=== PATIENT | female | born 1990 | race Caucasian/White ===

== ENCOUNTER 2024-07-15 02:24 | Outpatient (CLI) | payer BC, SELFPAY ==
[2024-07-15 16:36] LABS: Panorama Kit Sent via Fed Ex
[2024-07-15 16:54] LABS: Abs Immature Grans 0.02 10^3/uL (0.0-0.06); Absolute Basophil Count 0.04 10^3/uL (0.0-0.2); Absolute Eosinophil Count 0.07 10^3/uL (0.0-0.7); Absolute Monocyte Count 0.53 10^3/uL (0.1-0.8); Absolute Neutrophil Count 4.88 10^3/uL (1.2-6.7); Basophils % 0.6 %; HCT 36.9 % (36.0-46.0); HGB 12.7 g/dL (11.2-15.7); Immature Grans % 0.3 %; Lymphocytes % 23.5 %; MCH 32.7 pg (27.0-33.0); MCHC 34.4 % (32.0-36.0); MCV 95 fL (80-95); MPV 10.7 fL (8.0-11.0); Monocytes % 7.3 %; Neutrophils % 67.3 %; Platelet Count 221 10^3/uL (130-400); RBC 3.88 10^6/uL (3.93-5.22); RDW 11.3 % (11.7-14.6); RDW-SD 39.6 fL; WBC 7.24 10^3/uL (4.4-10.8)
[2024-07-17 09:21] LABS: Hepatitis B Surface Ag Negative (Negative)
[2024-07-17 09:59] LABS: Hepatitis C Ab w Rflx HCV PCR Negative (Negative)
[2024-07-17 10:21] LABS: HIV-1/2 Ag & Ab Screen Negative (Negative)
[2024-07-17 10:56] LABS: Varicella IgG Antibody Positive (See Note)
[2024-07-17 11:03] LABS: Rubella IgG Ab (UVM) Negative (See Note)
[2024-07-19 00:09] LABS: Syphilis IgG w/Reflex Nonreactive (Nonreactive)
[2024-07-20 03:57] LABS: Specimen WB Whole Blood
[2024-07-25 16:50] LABS: Result Summary NEGATIVE; Specimen WB Whole Blood
== END 2024-07-15 02:25 | disposition home or self-care (01) ==
LOC: LBO 02:25
PROVIDERS: Visit Provider Advanced Practice Midwife
DX: Z34.91 Encounter for supervision of normal pregnancy, unspecified, first trimester (principal); E84.9 Cystic fibrosis, unspecified
CPT/HCPCS: 36415; 81220; 81222; 81329; 86787; 86803; 86850; 86900; 86901; 87340; 87389; 82105; 85025; 86762; 86780

== ENCOUNTER 2024-07-15 16:01 | Outpatient (REF) | payer BC, SELFPAY ==
[2024-07-17 13:11] LABS: Chlamydia Result Negative (Negative); GC Result Negative (Negative)
== END 2024-07-15 16:02 | disposition home or self-care (01) ==
LOC: LBN 16:01
PROVIDERS: Visit Provider Advanced Practice Midwife
DX: Z34.91 Encounter for supervision of normal pregnancy, unspecified, first trimester (principal); Z3A.12 12 weeks gestation of pregnancy
CPT/HCPCS: 87491; 87591; 87086

== ENCOUNTER 2024-08-13 02:27 | Outpatient (CLI) | payer BC, SELFPAY ==
[2024-08-16 12:53] LABS: AFP 44.2 ng/mL; Calculated age at EDD 32 years; Cigarette smoking status non-Smoker; GA used in risk estimate Dates estimate; IVF Pregnancy No; Initial or repeat testing Initial testing; Insulin dependent diabetes No; Maternal Weight 115 lbs; Number of Fetuses 1; Physician Phone Number 802-748-7300; Prev Pregnancy w/NTD No; RECOMMENDED FOLLOW UP None.; Results Summary Normal risk
== END 2024-08-13 02:28 | disposition home or self-care (01) ==
LOC: LBO 02:27
PROVIDERS: Visit Provider Advanced Practice Midwife
DX: Z34.91 Encounter for supervision of normal pregnancy, unspecified, first trimester (principal)
CPT/HCPCS: 36415; 82105

== ENCOUNTER 2024-10-28 11:22 | Outpatient (CLI) | payer OTHER, SELFPAY ==
[2024-10-28 11:42] LABS: HCT 36.3 % (36.0-46.0); MCH 31.7 pg (27.0-33.0); MCHC 33.1 % (32.0-36.0); MCV 96 fL (80-95); MPV 10.9 fL (8.0-11.0); Platelet Count 166 10^3/uL (130-400); RBC 3.79 10^6/uL (3.93-5.22); RDW 12.1 % (11.7-14.6); RDW-SD 42.7 fL; WBC 6.83 10^3/uL (4.4-10.8)
[2024-10-28 11:50] LABS: Glucose,1 Hr (Glucola) 105 mg/dL (80-140)
== END 2024-10-28 11:23 | disposition home or self-care (01) ==
LOC: LBO 11:27
PROVIDERS: Advanced Practice Midwife; Visit Provider Advanced Practice Midwife
DX: O26.892 Other specified pregnancy related conditions, second trimester (principal); Z67.91 Unspecified blood type, Rh negative; Z34.92 Encounter for supervision of normal pregnancy, unspecified, second trimester
CPT/HCPCS: 36415; 82950; 85027; 86850; 86900; 86901; 90384

== ENCOUNTER 2024-11-19 10:26 | Outpatient (CLI) | payer OTHER, SELFPAY ==
[2024-11-19 10:51] VITALS: BP 94/56; PULSE 71; TEMP 36.8
--- NOTE | 2024-11-19 11:10 | W.OBNST ---
Date of service: 11/19/24 Time of Service: 11:10 NST Evaluation Reason for NST Reasons for Nonstress Test: OTHER, SEE COMMENT Reason for NST Other: Low HR on doppler in office Gestational Age Gestational Age in Weeks and Days: 30 Weeks and 6Days Test and Monitor Explained Test/Monitor Explained: Test Explained, Monitor Explained and Patient Verbalized Understanding Vital Signs Blood Pressure: 94/56 Pulse: 71 Temperature: 98.2 F Urine Results Urine Protein: Negative Urine Ketones: Negative Urine Glucose: Negative Urine Blood: Negative NST Information Date on Monitor: 11/19/24 Time on Monitor: 10:28 Date off Monitor: 11/19/24 Time off Monitor: 10:49 Total Time on Monitor: 21 NST Interventions: Notify Provider Contraction Frequency: Occasional NST Evaluation Patient States Movement: Present FHR Baseline: 130 Variability: Moderate 6-25 bpm Accelerations: 15x15 Decelerations: None NST Results: Reactive Note Ultrasound Done: N/A. NST Note Note: Brief episodes of FHR 90-110 heard with doppler. Fetus is active with Reactive NST with brief occasional FHR of 95-115 NST Reviewed and Verified by: Lisa Lewis
[2024-11-19 11:11] VITALS: BP 94/56; PULSE 71; TEMP 36.8
== END 2024-11-19 10:54 ==
LOC: BCD 10:27 → OBS 10:34
PROVIDERS: Visit Provider Advanced Practice Midwife
DX: O36.8330 Maternal care for abnormalities of the fetal heart rate or rhythm, third trimester, not applicable or unspecified (principal); Z3A.30 30 weeks gestation of pregnancy
CPT/HCPCS: 59025

== ENCOUNTER 2024-12-31 11:31 | Outpatient (REF) | payer OTHER, SELFPAY | END 2024-12-31 11:32 | disposition home or self-care (01) | LOC: LBN 11:31 | PROVIDERS: Visit Provider Advanced Practice Midwife | DX: Z34.93 Encounter for supervision of normal pregnancy, unspecified, third trimester (principal) | CPT/HCPCS: 87081 ==

== ENCOUNTER 2025-01-13 02:49 | Inpatient (IN) | payer OTHER, SELFPAY ==
[2025-01-13] VITALS (20 sets, daily range): BP systolic 92–129; BP diastolic 50–72; PULSE 72–120; RESP 16–18; TEMP 36.3–37.3; O2SAT 96–98
--- NOTE | 2025-01-13 03:42 | W.PM.OBHPL1 ---
Date of service: 01/13/25 Time of Service: 03:42 Assessment and Plan Assessment and plan (1) PROM with onset of labor within 24 hours of rupture: Status: Acute Assessment and plan: A: 34 yo @ 38+5 wks, SROM confirmed, clear fluid Early labor spontaneous onset, GBS negative Afebrile, normotensive, benign AP course Low risk for SD and PPH, category 1 tracing P: At 1 cm dilation pt offered discharge to home vs inpt admission, pt prefers to be admitted CBC, T&S, expectant management at this time with intermittent auscultation Pt planning low intervention labor and , FOB present for support OB-HPI Labor/Delivery History of Present Illness Reason for Visit: PRE TIMI Chief Complaint: Uterine Contractions; Suspected Rupture of Membranes , Associated Signs and Symptoms of Suspected ROM: gush of fluids at 2245, contractions beginning shortly thereafter. MADHURI Calculator Estimated Delivery Date Method Current WG Current Estimate 01/22/25 LMP (Certain) 38w 5d Other Estimates 01/25/25 Ultrasound #1 38w 2d History of Present Expected Delivery Route/Plan - CNM FOB - Johnny Diehl (his first child) BB yes to rosa m- [place] Rubella non-immune, offer MMR GBS negative Specific Issues/Plan 1. cfDNA low risk male, SMA negative, CF-neg, AFP- neg 2. 5-P's negative 3. RH neg, discussed with Sole Amador 10/28/24 4. Restless legs- magnesium supplements recommended and is helpful Assessment: History Reviewed & Current Review of Systems Narrative: ROS competed and noncontributory other than HPI PFSH All Active Problems (Updated 01/13/25 @ 03:47 by Talita Jarvis) PROM with onset of labor within 24 hours of rupture (Acute) Rh negative state in antepartum period (Acute) Rubella non-immune status, antepartum (Acute) [place] teeth extracted (Acute) (Acute) Positive urine test (Acute) Medical History (Updated 01/13/25 @ 03:47 by Talita Jarvis) Amenorrhea Fibrocystic breast changes of both breasts IUD mechanical complication [facility]ard [facility], 1 arm retained and fell out shortly thereafter. No sequelae. Family History (Updated 07/15/24 @ 21:37 by Lisa Lewis CNM) Mother Fibrocystic breast changes of both breasts Social History Smoking/Tobacco Use Status: Never Smoking risk assessment performed?: Yes History History 2 Para 0 Hx # Term Pregnancies 0 Multiple births 0 Hx # Pregnancies 0 Ectopic pregnancies 0 AB induced 1 Hx Number of Living Children 0 AB spontaneous 0 Meds Allergies and Home Medications Allergies Allergy/AdvReac Type Severity Reaction Status Date / Time No Known Allergies Allergy Verified 01/08/25 09:31 Home Medications ?Medication ?Instructions ?Recorded ?Confirmed ?Type [id number] 180 mcg-om3 32.5 tab PO 05/23/24 01/08/25 History [id number]-[id number]-[id number] chew tablet ( Gummies (DHA-EPA)) magnesium 200 mg tablet 200 mg PO DAILY 12/16/24 01/08/25 History Nature Made Iron gummies 2 tab PO DAILY 01/08/25 01/08/25 History Exam Physical Exam Vital Signs Reviewed: Yes Constitutional Constitutional: no acute distress, thin and cooperative Detailed Labor and Delivery Exam Dilation: 1 Effacement (%): 90 station: -1 Cervix position: anterior Consistency: medium CALDWELL Score(Cervical Ripeness Score): 9 Amniotic Membrane Status: Ruptured Rupture Method: Spontaneous Nitrazine: Positive Ferning: Present Contraction Frequency(min): irregular q2-4 Contraction Duration(sec): 60 Contraction Intensity: Mild Fetus A Heart Rate Baseline: 120 Monitor Accelerations: 15 X 15 Monitor Decelerations: None Variability: Moderate (6-25 BPM) Categories: Category I Est. Weight: 7 lb 0.877 oz Est. Weight: 3200 gms Date of Membrane Rupture: 01/12/25 Time of Membrane Rupture: 22:45 HEENT Exam HEENT Exam: Normal Neck Exam Neck Exam: Normal Chest/Brest/Axilla Exam Chest Exam: Normal Breast Exam Breast Exam: Not Done Respiratory Exam Respiratory Exam: Normal Cardiovascular Exam Cardiovascular Exam: Normal Abdominal Exam Abdominal Exam: Normal (Gravid, S=D, nontender) Rectal Exam Rectal Exam: Normal Exam Exam: Normal Extremities Exam Extremities Exam: Normal Back/Spine/Pelvis Exam Back Exam: Normal Pelvis Adequate: Yes Skin Exam Skin Exam: Normal Neurological Exam Neurological Exam: Normal Psychiatric Exam Psychiatric Exam: Normal Results Results Group Beta Strep: Negative Blood Type: A- Rubella Status: Nonimmune Varicella Immunity: Immune Risk Assessment Risk for Shoulder Dystocia Historical/Initial OB: NEGATIVE FOR: Pelvic Abnormality, Pre- BMI>30, Previous Shoulder Dystocia or Previous Macrosomia 36 Weeks: NEGATIVE FOR: Current Gestational DM, EFW>4500gms or Maternal Weight Gain>40lbs Increased Risk?: No Delivery Plan @ 36wks: Risk for Pre-Eclampsia Date Initiated/Initials: 07/15/24 Yes, if one or more: NEGATIVE FOR: Hx Pre-E/Gest HTN, Chronic HTN, Multiple Gestation, Pre-gestational DM, Renal Disease, Systemic Lupus or APA Syndrome Yes, if 2 or more: POSITIVE FOR: Nulliparity; NEGATIVE FOR: Age>= 35 yrs, >10yr btwn pregnancies, BMI>30, ethinicty, Mother/Sister w/ Pre-E or Previous IUGR Risk for Post- Hemorrhage Initial: NEGATIVE FOR: Multiple Gestation, Previous PPH, Known Clotting Deficiency, Grand Multiparity or Anticoagulation 36 Weeks: NEGATIVE FOR: Anemia, hgb<10, Low platelets(thrombocytopenia), Gestational HTN or Pre-E, Polyhydraminios or EFW>4500gms At Risk?: No Counseled re: Active Management: Yes Risks Reviewed Risks Reviewed Upon Admission: Yes
[2025-01-13 04:09] LABS: HCT 33.9 % (36.0-46.0); MCH 29.5 pg (27.0-33.0); MCHC 32.4 % (32.0-36.0); MCV 91 fL (80-95); MPV 11.4 fL (8.0-11.0); Platelet Count 168 10^3/uL (130-400); RBC 3.73 10^6/uL (3.93-5.22); RDW-SD 42.4 fL; WBC 10.51 10^3/uL (4.4-10.8)
--- NOTE | 2025-01-13 09:09 | W.PM.OBNL1 ---
Date of service: 01/13/25 Time of Service: 09:09 Pelvic Exam Dilation: 3 (per RN exam) Effacement (%): 90 station: -1 Contractions Monitor Mode: Palpation Contraction Frequency(min): q2-3 Fetus A Monitor: Doppler Heart Rate Baseline: 120 FHR Rhythm: Regular Characteristics: Normal Assessment and Plan Assessment and plan (1) PROM with onset of labor within 24 hours of rupture: Status: Acute Assessment and plan: A: PROM x11 hrs ,prodromal phase labor, progressing Pt moving around room or resting in bed, using pnut ball Tolerating PO fluid intake though having some nausea Intermittent auscultation is reassuring, cat 1 tracing at 0730 tracing P: Continue current plan of care, pt coping well Observe for labor progression, anticipate Objective Abnormal lab results 01/13/25 Range/Units 04:00 RBC 3.73 L (3.93-5.22) 10^6/uL Hgb 11.0 L (11.2-15.7) g/dL Hct 33.9 L (36.0-46.0) % MPV 11.4 H (8.0-11.0) fL Temp Pulse Resp BP 99.0 F 82 18 104/60 01/13/25 08:28 01/13/25 09:08 01/13/25 04:05 01/13/25 09:08 Laboratory Results WBC 10.51 10^3/uL (4.4-10.8) 01/13/25 04:00 RBC 3.73 10^6/uL (3.93-5.22) L 01/13/25 04:00 Hgb 11.0 g/dL (11.2-15.7) L 01/13/25 04:00 Hct 33.9 % (36.0-46.0) L 01/13/25 04:00 MCV 91 fL (80-95) 01/13/25 04:00 MCH 29.5 pg (27.0-33.0) 01/13/25 04:00 MCHC 32.4 % (32.0-36.0) 01/13/25 04:00 RDW 13.0 % (11.7-14.6) 01/13/25 04:00 Plt Count 168 10^3/uL (130-400) 01/13/25 04:00 MPV 11.4 fL (8.0-11.0) H 01/13/25 04:00 ABO/Rh A Negative 01/13/25 04:00 Antibody Screen POSITIVE 01/13/25 04:00 Antibody Identification Anti-D 01/13/25 04:00 Vital Signs Reviewed: Yes Subjective Interval history since last seen: Contractions are more painful and intense with some pelvic pressure at peak of contractions.
[2025-01-13] MEDS: Oxytocin 10 UNITS/ML VIAL IM (12:27)
[2025-01-13] MEDS: Benzocaine 20% 60 ML CAN (12:31)
--- NOTE | 2025-01-13 12:55 | W.OBDELIVERY ---
Date of service: 01/13/25 Time of Service: 12:55 OB Labor/ Delivery Information Baby A Delivery Delivery Method: Spontaneaous Presentation: Cephalic Cephalic Position: Vertex Vertex Position: Right Occipital Anterior Breech Position: N/A Cord Description-Baby A: 3 Vessels and Other (loop of cord presenting after shoulders, wrapped around left arm and body x1) Amniotic Fluid: Clear Estimated Blood Loss: 500 QBL Delivery Outcome: Liveborn Infant Transferred: Remains with Mother Note: Pt requested to use the tub @ 8 cm dilation, one hour later vtx @ +3 with anterior lip and pushing involuntarily. 2nd stage huddle held. Pt relocated to left lateral position in bed after feeling like she was not making much progress in the tub, and progressed to full dilation, FHT's remained reassuring per doptone and intermittent auscultation per guidelines. in supine position of a vigorous male over intact perineum, cord loop presented after delivery of shoulders which was wound around left arm and hips. Baby unwrapped easily from cord and to mother's arms immediately. Cord ceased pulsating and was clamped then cut by FOB, cord blood collected, [place] placenta delivered intact with 3VC. Initially patient declined pitocin 10 units IM but persistent trickling lochia discussed with pt and QBL @ 500 ml, pt consented to injection and lochia slowed to scant with fundus firm below umbilicus. Left labial laceration repaired with 3.0 Vicryl using benzocaine topical aerosol anesthetic. Apgars 7/9, strong family bonding observed, weight 3140 gms. Providers Nurse Trust Operations Assistant: Talita Jarvis Nurse: Samantha Connell Nurse: Savanah Rogers Labor/Delivery Information Number of Babies in Womb: 1 Steroids Given: None Reason Steroids Not Administered: N/A Group Beta Strep: Negative Antibiotics Administered: No Rubella Status: Nonimmune Blood Type: A- Varicella Immunity: Immune Medication in Delivery: pp IM pit Maternal Complications: None Shoulder Dystocia: No Stages of Labor Onset of Labor Date: 01/12/25 Onset of Labor Time: 22:00 Complete Dilatation Date: 01/13/25 Complete Dilatation Time: 11:30 Labor - Stage 1 Duration: 13 hours and 30 minutes ROM Baby A: 01/12/25 ROM Baby A: 22:00 ROM Total Time- Baby A: [id number] Infant Delivery Date-Baby A: 01/13/25 Infant Delivery Time-Baby A: 12:19 Labor Stage 2 Duration: 49 minutes Placenta Delivery Date-Baby A: 01/13/25 Placenta Delivery Time-Baby A: 12:25 Labor-Stage 3 Duration: 6 minutes Total Length of Labor-Baby A: 14 hours and 19 minutes Placenta Cultured: No Placenta Status: Delivered Baby A Gender: Male Gestational Status: Term (39-41.6 wks) Gestational Age in Weeks/Days: 38 Weeks and 5 Days weight: 6 lb 14.76 oz Weight Comment: 3140 gms Score-1 Minute Interval(Baby A) Heart Rate-1 minute: 100 BPM or Greater Respiratory Effort- 1 minute: Spontaneous/Strong Cry Muscle Tone-1 minute: Minimal Flexion/Extension Reflex Response-1 minute: Prompt Response Color-1 minute: Pallor or Cyanosis Total Score-1 minute: 7 Score-5 Minute Interval(Baby A) Heart Rate- 5 minute: 100 BPM or Greater Respiratory Effort-5 minute: Spontaneous/Strong Cry Muscle Tone-5 minute: Active Movement Reflex Response-5 minute: Prompt Response Color-5 minute: Bluish Hands or Feet Total Score- 5 minute: 9 Procedure Procedures: Cord Blood Collection Interventions Repair of Laceration Type: Other (left labia), Laceration Extension: N/A. Sponge Count Correct: Yes, Sharp Count Correct: Yes.
[2025-01-13] MEDS: Hamamelis Leaf/Glycerin 100 EACH BOX PR (14:37)
[2025-01-13] MEDS: Ibuprofen 600 MG TAB PO (14:37)
[2025-01-14 03:37] VITALS: BP 95/61; PULSE 83; RESP 18; TEMP 36.7
[2025-01-14 07:14] VITALS: BP 107/71; PULSE 69; RESP 16; TEMP 36.4; O2SAT 98
[2025-01-14] MEDS: Ibuprofen 600 MG TAB PO (07:42)
[2025-01-14] MEDS: Measles, Mumps, & Rubella Vaccine 0.5 ML VIAL SC (08:22)
[2025-01-14 12:23] VITALS: BP 99/64; PULSE 69; TEMP 36.7
--- NOTE | 2025-01-14 12:42 | DSE_ITS ---
Date of service: 01/14/25 Time of Service: 12:44 DS: Diagnosis Discharge Diagnosis (1) Term of male : Status: Acute Asessment and Plan: Caring for baby independently. Pain is managed well with oral analgesics. Voiding without difficulty. well. A - stable mother and baby , Post day 1 P - Discharge to home today. 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 Routine post instructions. [facility] Discharge Plan Disposition Patient Disposition: Home Condition: Good Discharge Details Reason For Visit: PROM 38 Wks Admit Date/Time: 01/13/25 03:35 Admit Provider: Talita Jarvis Attending Provider: Talita Jarvis Primary Care Provider: Unknown,Unknown Home Meds and New Rx's Prescriptions: No Action magnesium 200 mg tablet 200 mg PO DAILY Gummies (DHA-EPA) 180 mcg-32.5mg- 25 mg-7.5 mg tablet,chewable 1 tab PO DAILY Nature Made Iron gummies 30 mg 2 tab PO DAILY Discharge Instructions Stand Alone Forms: BC Instructions, BC Post Vaginal Deliver Activity:: Activity as Tolerated Equipment/Supplies:: Blood Glucose Monitor Diet:: As Tolerated Discharge Orders Discharge Orders: Discharge Order (Routine); Ordered 01/14/25 Ordered By: Lisa Lewis OB:DS Summary Summary Vaginal Delivery Method: Spontaneaous Episiotomy Description: None Laceration Description: Other (left labia) Laceration Extension: N/A Contraception Discussed Contraception Discussed: Yes Contraceptive Plan: IUD, [place] Gender-Baby A: Male weight: 6 lb 14.76 oz Status at Discharge Functional status at discharge: independent ambulation Overall status at discharge: patient is back to baseline Mental Status: mental status grossly normal Speech and Movement: speech and movement normal Mood: congruent mood Affect: normal affect Quality:SDOH Health Related Social Needs: Health related social needs food insecurity (Z59.41) Exam Physical Exam Vital signs: Temp Pulse Resp BP Pulse Ox 98.1 F 69 16 99/64 L 98 01/14/25 12:23 01/14/25 12:23 01/14/25 07:14 01/14/25 12:23 01/14/25 07:14 PFSH All Active Problems (Updated 01/14/25 @ 12:43 by Lisa Lewis CNM) Term of male (Acute) Rh negative state in antepartum period (Acute) Rubella non-immune status, antepartum (Acute) [place] teeth extracted (Acute) Medical History (Updated 01/14/25 @ 12:43 by Lisa Lewis CNM) Fibrocystic breast changes of both breasts IUD mechanical complication [facility]Gard [facility] at [facility], 1 arm retained and fell out shortly thereafter. No sequelae. Family History (Updated 07/15/24 @ 21:37 by Lisa Lewis CNM) Mother Fibrocystic breast changes of both breasts Social History Smoking/Tobacco Use Status: Never Smoking risk assessment performed?: Yes Alcohol Intake: never Drug use: Never Substance use type: does not use Housing: apartment Do you feel safe at home: Yes Do you feel safe in your relationship?: Yes History History 2 Para 0 Hx # Term Pregnancies 0 Multiple births 0 Hx # Pregnancies 0 Ectopic pregnancies 0 AB induced 1 Hx Number of Living Children 0 AB spontaneous 0 DS: Data Vitals/I&O Vitals and I&O: Vital Signs Temperature 98.1 F 01/14/25 12:23 Temperature Source Forehead 01/14/25 12:23 Pulse 69 01/14/25 12:23 Pulse Rhythm Regular 01/14/25 07:30 Respiratory Rate 16 01/14/25 07:14 Respiratory Depth Normal 01/14/25 07:30 Blood Pressure 99/64 L 01/14/25 12:23 Blood Pressure Mean 75 01/14/25 12:23 Pulse Oximetry 98 01/14/25 07:14 Oxygen Delivery Method Room Air 01/13/25 03:06 Oxygen Flow Rate 0 01/13/25 03:06 Pain Level 1 01/13/25 03:06 Intake & Output 01/13/25 01/14/25 01/14/25 23:59 11:59 23:59 Output Total 400 / 600 Balance -400 / -600 Output: Urine 400 / 600 Other: Urine Color Pale Pale
[2025-01-14] MEDS: Dibucaine 1% 28 GM TUBE TP (15:15)
[2025-01-14] MEDS: Hamamelis Leaf/Glycerin 100 EACH BOX PR (15:15)
[2025-01-14 15:22] VITALS: BP 100/65; PULSE 95; RESP 18; TEMP 36.9; O2SAT 99
== END 2025-01-14 15:43 | disposition home or self-care (01) | DRG 806 ==
PROVIDERS: Admitting Provider Advanced Practice Midwife; Visit Provider Advanced Practice Midwife
DX: O42.02 Full-term premature rupture of membranes, onset of labor within 24 hours of rupture (principal); O99.354 Diseases of the nervous system complicating childbirth; Z37.0 Single live birth; O70.0 First degree perineal laceration during delivery; Z3A.38 38 weeks gestation of pregnancy; G25.81 Restless legs syndrome; O26.893 Other specified pregnancy related conditions, third trimester; Z67.91 Unspecified blood type, Rh negative; Z28.39 Other underimmunization status
CPT/HCPCS: 36415; 85027; 86850; 86900; 86901; 90707; 86870; J2590